=== PATIENT | female | born 1985 ===

== ENCOUNTER 2025-04-27 00:42 | Emergency (ER) | payer SELFPAY ==
--- NOTE | 2025-04-27 00:44 | ECG_ITS ---
Test Date: 2025-04-27 00:49:43 Measurements Intervals [place] Rate: 95 P: 30 NV: 197 QRS: 28 QRSD: 74 T: 33 QT: 325 QTc: 410 Interpretive Statements SINUS RHYTHM DELAYED PRECORDIAL R/S TRANSITION NONSPECIFIC T-WAVE ABNORMALITY- ANTERIOR LEADS BASELINE ARTIFACT- I, II, AVR, AVL, AVF BORDERLINE ECG No previous ECG available for comparison Electronically Signed On 04-27-2025 05:36:41 CDT by Ifeanyi Park D.O.
[2025-04-27 00:47] VITALS: BP 113/66; PULSE 99; RESP 20; TEMP 36.9; O2SAT 99
== END 2025-04-27 01:27 | disposition left against medical advice (07) ==
LOC: ANHED 01:32
PROVIDERS: Emergency Provider Emergency Medicine
DX: R07.9 Chest pain, unspecified (principal)
CPT/HCPCS: 93005; 99199